=== PATIENT | male | born 2000 | race African-American/Black ===

== ENCOUNTER 2018-07-17 16:26 | Emergency (ER) | payer BC ==
[2018-07-17] MEDS ORDERED: IBUPROFEN 600 MG TABLET (FP) PO ONE ×2 (17:27→18:09)
[2018-07-17 17:28] VITALS: BP 132/78; PULSE 90; TEMP 98.3; BMI 17.7
--- NOTE | 2018-07-17 17:29 | PDOC ---
Rapid Medical Evaluation Time Seen by Provider: 07/17/18 17:26 Medical Evaluation: Allergies Allergy/AdvReac Type Severity Reaction Status Date / Time No Known Allergies Allergy Verified 09/09/14 10:06 07/17/18 17:28 Pt c/o: rt foot pain after playing basketball, no meds taken Pt on brief exam: tender to proximal aspect of 2nd mtp, no crepitus Patient ordered for: xray and motrin Pt to proceed to the ED Discharge Disposition - Diagnosis Foot pain, right - Referrals Referrals: Nieves Kim MD [Primary Care Provider] - - Patient Instructions - Post Discharge Activity
--- NOTE | 2018-07-17 18:37 | PDOC ---
History of Present Illness - General Chief Complaint: Injury Stated Complaint: RIGHT FOOT INJUR Time Seen by Provider: 07/17/18 17:26 History Source: Patient, Parent(s) Exam Limitations: No Limitations - History of Present Illness Initial Comments: 07/17/18 18:33 17 yo M w/ no sig PMHx comes in with mo c/o R foot pain since yesterday which started after playing basketball. He does not recall tripping, twisting his ankle, does not recall hurting his foot. NO knee pain, no back pain, no other complaints today. No numbnes/tingling, no sensory deficits Past History - Past Medical History Allergies/Adverse Reactions: Allergies Allergy/AdvReac Type Severity Reaction Status Date / Time No Known Allergies Allergy Verified 07/17/18 17:28 Home Medications: Ambulatory Orders Ibuprofen 600 mg PO TID 3 Days #20 tablet 07/17/18 Asthma: Yes COPD: No - Immunization History Immunization Up to Date: Yes - Suicide/Smoking/Psychosocial Hx Smoking History: Never smoked Hx Alcohol Use: No Review of Systems - Review of Systems Able to Perform ROS?: Yes Constitutional: No: Chills, Fever, Malaise, Night Sweats HEENTM: No: Eye Pain, Recent change in vision, Throat Pain Respiratory: No: Cough, Shortness of Breath Cardiac (ROS): No: Chest Pain, Palpitations, Chest Tightness ABD/GI: No: Diarrhea, Nausea, Vomiting, Abdominal cramping : No: Dysuria, Hematuria Musculoskeletal: No: Back Pain Integumentary: No: Rash Neurological: No: Headache, Numbness, Dizziness Psychiatric: No: Change in Appetite Endocrine: No: Unexplained Weight Loss *Physical Exam - Vital Signs Last Vital Signs Temp Pulse Resp BP Pulse Ox 98.3 F 90 18 132/78 100 07/17/18 17:26 07/17/18 17:26 07/17/18 17:26 07/17/18 17:26 07/17/18 17:26 - Physical Exam General Appearance: Yes: Nourished. No: Apparent Distress HEENT: positive: ROBIN, Normal Voice. negative: Pale Conjunctivae, Scleral Icterus (R), Scleral Icterus (L) Neck: positive: Supple. negative: Decreased range of motion, Tender midline Respiratory/Chest: negative: Respiratory Distress, Accessory Muscle Use Cardiovascular: positive: Regular Rhythm, Regular Rate Musculoskeletal: positive: Normal Inspection, Other (R foot with mild swelling to the midfoot medially with tenderness, FROM, 5/5 strength, good pulses, full sensory function. R knee/ankle unremarkable with FROM and 5/5 strength. NO achilles tenderness, (-)Stovall test) Extremity: positive: Normal Capillary Refill, Normal Inspection, Normal Range of Motion. negative: Tender, Pedal Edema Integumentary: positive: Normal Color, Dry. negative: Jaundice, Rash Neurologic: positive: Fully Oriented, Alert, Normal Mood/Affect Moderate Sedation - Procedure Monitoring Vital Signs: Procedure Monitoring Vital Signs Temperature 98.3 F 07/17/18 17:26 Pulse Rate 90 07/17/18 17:26 Respiratory Rate 18 07/17/18 17:26 Blood Pressure 132/78 07/17/18 17:26 O2 Sat by Pulse Oximetry (%) 100 07/17/18 17:26 ED Treatment Course - Medications Given in the ED: ED Medications Discontinued Medications Generic Name Dose Route Start Last Admin Trade Name Benja PRN Reason Stop Dose Admin Ibuprofen 600 mg 07/17/18 17:27 07/17/18 18:20 Motrin - PO 07/17/18 17:28 600 mg ONCE ONE Administration Medical Decision Making - Medical Decision Making 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 XRays pending 07/17/18 18:38 Foot xrays negative Pt placed in [facility] ortho follow up RICE Return for worsening/concerning symptoms Pt verbalizes understanding and agrees with plan *DC/Admit/Observation/Transfer Diagnosis at time of Disposition: Foot pain, right - Discharge Dispostion Disposition: HOME Condition at time of disposition: Stable Decision to Admit order: No - Prescriptions Prescriptions: Ibuprofen 600 mg PO TID 3 Days #20 tablet - Referrals Referrals: Nieves Kim MD [Primary Care Provider] - Dave Olvera DO [Staff Physician] - - Patient Instructions - Post Discharge Activity
== END 2018-07-17 18:51 | disposition home or self-care (01) ==
LOC: JERFT 16:26
DX: M79.671 Pain in right foot (principal); X58.XXXA Exposure to other specified factors, initial encounter; Y93.67 Activity, basketball; Y92.310 Basketball court as the place of occurrence of the external cause; Y99.8 Other external cause status
CPT/HCPCS: 73630-TC-RT-FY; 99281-25

== ENCOUNTER 2020-09-07 17:51 | Emergency (ER) | payer BC ==
[2020-09-07 18:01] VITALS: BP 122/70; PULSE 93; TEMP 98; BMI 20.6
== END 2020-09-07 19:36 | disposition home or self-care (01) ==
LOC: JER 17:51
DX: J06.9 Acute upper respiratory infection, unspecified (principal)
CPT/HCPCS: 99284-25; C9803; U0003

== ENCOUNTER 2021-06-12 15:28 | Emergency (ER) | payer BC ==
[2021-06-12 16:04] VITALS: BP 129/82; PULSE 87; TEMP 98.7; BMI 22.2
== END 2021-06-12 19:20 | disposition home or self-care (01) ==
LOC: JER 15:28
DX: J06.9 Acute upper respiratory infection, unspecified (principal)
CPT/HCPCS: 87804; 87807; 99283-25; C9803; U0003; U0005